=== PATIENT | female | born 1980 ===

== ENCOUNTER 2018-09-05 23:54 | Inpatient (IN) ==
[2018-09-06] MEDS ORDERED: MEPERIDINE 50 MG/1 ML VIAL IV PRN (00:15)
[2018-09-06] MEDS ORDERED: BUTORPHANOL 2 MG/ML VIAL IV PRN (00:15)
[2018-09-06 01:05] LABS: Basophils % 0.2 % (0.0-0.8); Eosinophils % 0.3 % (0.00-10.9); Hematocrit 29.9 VOL% (35.7-47.0); Hemoglobin 9.1 GM/DL (12.0-16.0); Immature Granulocytes % 1.8 %; Immature Granulocytes Absolute 0.17 #; Lymphocytes # 2.1 10*3/uL (1.4-4.0); Lymphocytes % 22.3 % (21.3-54.2); Mean Corpuscular HGB Conc 30.4 GM/DL (32-36); Mean Corpuscular Volume 85.4 FL (87-102); Mean Platelet Volume 11.7 FL (9.6-12.0); Monocytes % 6.1 % (1.7-12.7); Neutrophils % 69.3 % (38.7-73.9); Platelet Count 199 T/CUMM (130-400); Red Cell Distribution Width 14.7 % (9.3-17.3); White Blood Count 9.3 T/CUMM (4-12)
[2018-09-06 01:15] LABS: Albumin 2.6 G/DL (3.4-5.0); Bilirubin,Total 0.4 MG/DL (0.2-1.0); Calcium 8.4 MG/DL (8.5-10.1); Osmolality,Calculated 279.4 MOS/KG (273-304); Total Protein 6.4 G/DL (6.4-8.3)
[2018-09-06] MEDS: LACTATED RINGERS 1,000 ML IV SCH ×3 (02:31→17:33)
[2018-09-06] MEDS: AMPICILLIN INJ 2,000 MG in SODIUM CHLORIDE 0.9% 100 ML IV SCH ×3 (02:31→14:38)
[2018-09-06] MEDS ORDERED: diphenhydrAMINE 50 MG/1 ML VIAL IV PRN (08:21)
[2018-09-06] MEDS ORDERED: PROMETHAZINE 25 MG/1 ML VIAL IM ONE (08:21)
[2018-09-06] MEDS ORDERED: FAMOTIDINE 20 MG/2 ML VIAL IV ONE (08:21)
[2018-09-06] MEDS ORDERED: NALOXONE 0.4 MG/ML VIAL IV PRN (08:21)
[2018-09-06] MEDS ORDERED: hydrOXYzine HCL 25 MG/1 ML VIAL IM PRN (08:21)
[2018-09-06] MEDS ORDERED: ePHEDrine 50 MG/ML AMP IV PRN (08:21)
[2018-09-06] MEDS ORDERED: CITRIC ACID/SODIUM CITRATE 30 ML UDCUP PO ONE (08:21)
[2018-09-06] MEDS ORDERED: OXYTOCIN/LR 20 UNIT/1,000 ML BAG IV SCH (08:30)
[2018-09-06] MEDS: fentaNYL 2 MCG/ROPIV 0.2% EPID 100 ML EPIDURAL SCH ×2 (09:25→18:20)
[2018-09-06] MEDS: ONDANSETRON 4 MG/2 ML VIAL IV PRN (10:18)
[2018-09-06 10:51] LABS: Apearance,Urine CLEAR (Clear); Bilirubin,Urine Negative (Negative); Blood, Urine Negative (Negative); Glucose,Urine (UA) Negative (Negative); Ketones,Urine Negative (Negative); Nitrite,Urine Negative (Negative); Protein,Urine Negative; Urine Color Yellow (Yellow); Urine Specific Gravity 1.015 (1.001-1.035); Urine Urobilinogen < 2.0 EU/DL (0.2-1.0); WBC,Urine 1 /HPF (0-6)
[2018-09-06] MEDS ORDERED: ACETAMINOPHEN 325 MG TABLET PO ONE ×2 (13:00→16:55)
[2018-09-06] MEDS ORDERED: miSOPROStol 200 MCG TABLET ONE (14:41)
[2018-09-06] MEDS ORDERED: METHYLERGONOVINE 0.2 MG/1 ML AMP ONE ×2 (14:41→22:00)
[2018-09-06] MEDS ORDERED: OXYTOCIN/LR 0 UNIT/0 ML BAG IV ONE (14:41)
[2018-09-06] MEDS ORDERED: TRANEXAMIC ACID 1,000 MG/10 ML VIAL ONE (14:41)
[2018-09-06] MEDS ORDERED: CARBOPROST TROMETHAMINE 250 MCG/ML AMP IM ONE (14:42)
[2018-09-06] MEDS ORDERED: LIDOCAINE MPF 2% /EPI 20 ML VIAL ONE (20:43)
[2018-09-06] MEDS ORDERED: MORPHINE 10 MG/10 ML VIAL ONE (20:43)
[2018-09-06] MEDS ORDERED: KETOROLAC 60 MG/2 ML VIAL IM ONE (20:43)
[2018-09-06] MEDS ORDERED: BUPIVACAINE SPINAL 0.75% 2 ML AMP SPINAL ONE (20:57)
[2018-09-06] MEDS ORDERED: PHENYLEPHRINE 1 MG/10 ML SYRINGE IV ONE ×2 (20:57→22:51)
[2018-09-06] MEDS ORDERED: ceFAZolin 3,000 MG in SYRINGE 1 EACH IV ONE (21:00)
[2018-09-06] MEDS ORDERED: RHO(D) IMMUNE GLOBULIN 300 MCG SYRINGE IM ONE (22:31)
[2018-09-06] MEDS ORDERED: MAGNESIUM HYDROXIDE SUSP 30 ML UDCUP PO PRN (22:31)
[2018-09-06] MEDS ORDERED: ACETAMINOPHEN 325 MG TABLET PO PRN (22:31)
[2018-09-06] MEDS ORDERED: ONDANSETRON 4 MG/2 ML VIAL IV PRN (22:31)
[2018-09-06] MEDS ORDERED: OXYTOCIN/LR 20 UNIT/1,000 ML BAG IV ONE (22:31)
[2018-09-06] MEDS ORDERED: PROPOFOL 200 MG/20 ML VIAL IV ONE (22:51)
[2018-09-06] MEDS: HYDROmorphone 2 MG/1 ML VIAL IV PRN (23:02)
[2018-09-06 23:18] LABS: Basophils # 0.1 10*3/uL (0.0-0.2); Basophils % 0.3 % (0.0-0.8); Hemoglobin 8.9 GM/DL (12.0-16.0); Immature Granulocytes Absolute 0.19 #; Lymphocytes # 0.9 10*3/uL (1.4-4.0); Lymphocytes % 4.8 % (21.3-54.2); Mean Corpuscular HGB Conc 30.7 GM/DL (32-36); Mean Corpuscular Volume 86.3 FL (87-102); Mean Platelet Volume 10.8 FL (9.6-12.0); Monocytes % 5.1 % (1.7-12.7); Neutrophils % 88.8 % (38.7-73.9); Platelet Count 211 T/CUMM (130-400); Red Blood Count 3.36 MC/CUMM (3.8-5.5); Red Cell Distribution Width 14.9 % (9.3-17.3); White Blood Count 18.3 T/CUMM (4-12)
[2018-09-06 23:56] LABS: Band Neutrophils 6 % (0-10); Lymphocytes 4 % (20-55); Segmented Neutrophils 86 % (50-85); Total Cells Counted 100
[2018-09-06 23:57] LABS: Hypochromasia 1+; Platelet Estimate Normal
[2018-09-07] MEDS ORDERED: DEXTROSE 50% 25 GM/50 ML VIAL IV PRN (00:19)
[2018-09-07] MEDS ORDERED: GLUCAGON 1 MG VIAL IM PRN (00:19)
[2018-09-07] MEDS: HYDROmorphone 2 MG/1 ML VIAL IV PRN (02:05)
[2018-09-07] MEDS: LACTATED RINGERS 1,000 ML IV SCH ×4 (04:05→18:19)
[2018-09-07] MEDS: ONDANSETRON 4 MG/2 ML VIAL IV PRN (04:45)
[2018-09-07 06:26] LABS: Basophils % 0.1 % (0.0-0.8); Hematocrit 26.6 VOL% (35.7-47.0); Hemoglobin 8.2 GM/DL (12.0-16.0); Immature Granulocytes % 0.6 %; Lymphocytes # 1.2 10*3/uL (1.4-4.0); Lymphocytes % 7.4 % (21.3-54.2); Mean Corpuscular HGB Conc 30.8 GM/DL (32-36); Mean Corpuscular Volume 86.4 FL (87-102); Mean Platelet Volume 11.1 FL (9.6-12.0); Monocytes % 6.2 % (1.7-12.7); Neutrophils % 85.7 % (38.7-73.9); Platelet Count 200 T/CUMM (130-400); Red Blood Count 3.08 MC/CUMM (3.8-5.5); Red Cell Distribution Width 14.8 % (9.3-17.3); White Blood Count 16.7 T/CUMM (4-12)
[2018-09-07] MEDS: MULTIVITAMIN (PRENATAL) TABLET PO SCH (08:56)
[2018-09-07] MEDS: DOCUSATE SODIUM 100 MG CAPSULE PO SCH ×3 (08:56→23:33)
[2018-09-07 13:10] LABS: Basophils % 0.1 % (0.0-0.8); Eosinophils % 0.1 % (0.00-10.9); Hematocrit 23.3 VOL% (35.7-47.0); Hemoglobin 7.2 GM/DL (12.0-16.0); Immature Granulocytes % 0.7 %; Lymphocytes # 1.1 10*3/uL (1.4-4.0); Lymphocytes % 7.6 % (21.3-54.2); Mean Corpuscular HGB Conc 30.9 GM/DL (32-36); Mean Corpuscular Volume 85.7 FL (87-102); Mean Platelet Volume 10.6 FL (9.6-12.0); Monocytes % 6.2 % (1.7-12.7); Neutrophils % 85.3 % (38.7-73.9); Platelet Count 173 T/CUMM (130-400); Red Blood Count 2.72 MC/CUMM (3.8-5.5); Red Cell Distribution Width 15.1 % (9.3-17.3); White Blood Count 14.2 T/CUMM (4-12)
[2018-09-07] MEDS ORDERED: ceFAZolin 1,000 MG in SYRINGE 1 EACH IV SCH (13:30)
[2018-09-07] MEDS: FERROUS SULFATE 325 MG TABLET PO SCH ×3 (13:30→23:33)
[2018-09-07] MEDS: IBUPROFEN 800 MG TABLET PO PRN ×2 (13:54→23:45)
[2018-09-07] MEDS: SIMETHICONE CHEW 80 MG TABLET PO PRN (19:46)
[2018-09-08] MEDS ORDERED: BISACODYL 10 MG SUPP RECTAL PRN (06:27)
[2018-09-08] MEDS: SIMETHICONE CHEW 80 MG TABLET PO PRN ×2 (06:40→19:43)
[2018-09-08] MEDS: FERROUS SULFATE 325 MG TABLET PO SCH ×3 (08:37→22:51)
[2018-09-08] MEDS: DOCUSATE SODIUM 100 MG CAPSULE PO SCH ×3 (08:37→22:51)
[2018-09-08] MEDS: MULTIVITAMIN (PRENATAL) TABLET PO SCH (08:37)
[2018-09-08] MEDS ORDERED: oxyCODONE/ACETAMINOPHEN 5-325 MG TABLET PO PRN ×2 (19:38)
[2018-09-08] MEDS: IBUPROFEN 800 MG TABLET PO PRN (19:43)
[2018-09-08] MEDS ORDERED: ONDANSETRON 4 MG TABLET PO PRN (23:49)
[2018-09-09 08:23] VITALS: BP 124/70
[2018-09-09] MEDS: IBUPROFEN 800 MG TABLET PO PRN (08:55)
[2018-09-09] MEDS: DOCUSATE SODIUM 100 MG CAPSULE PO SCH (09:39)
[2018-09-09] MEDS: MULTIVITAMIN (PRENATAL) TABLET PO SCH (09:39)
[2018-09-09] MEDS: FERROUS SULFATE 325 MG TABLET PO SCH (09:39)
[2018-09-09] MEDS ORDERED: DIPH/TET/ACEL PERT BOOSTER VACCINE 0.5 ML VIAL IM ONE (10:38)
== END 2018-09-09 12:00 | disposition home or self-care (01) | DRG 787 ==
LOC: N.LDOUT 23:54 → N.LD 09-06 00:03 → N.OB 09-07 00:16
PROVIDERS: ADMIT Obstetrics & Gynecology; ATTEND Obstetrics & Gynecology
PROC: LDCSECT (ICD-10-PCS; 2018-09-06 21:00)